=== PATIENT | male | born 1935 | race Two or more races ===

== ENCOUNTER 2023-01-12 15:39 | Emergency (ER) | payer OTHER ==
[~2023-01-12] VITALS: Ht 165.1 cm; Wt 56.7 kg
[2023-01-12] MEDS ORDERED: PAXLOVID 150-11 EACH (16:13)
[2023-01-12] MEDS ORDERED: VASOTEC2.5 MG (16:14)
[2023-01-12] MEDS ORDERED: LANOXIN125 MCG (16:14)
[2023-01-12] MEDS ORDERED: TAMS0.4C (16:14)
[2023-01-12] MEDS ORDERED: SYNTHROID75 MCG (16:14)
[2023-01-12] MEDS ORDERED: ECOTRIN81 MG (16:14)
[2023-01-12] MEDS ORDERED: TOPROL XL25 M1 (16:15)
[2023-01-12] MEDS ORDERED: LIPITOR40 M1 (16:15)
== END 2023-01-13 05:19 | disposition home or self-care (01) ==
LOC: ER 15:39
DX: K52.9 Noninfective gastroenteritis and colitis, unspecified (principal); D64.9 Anemia, unspecified; E86.0 Dehydration; C18.9 Malignant neoplasm of colon, unspecified; I10 Essential (primary) hypertension; E03.9 Hypothyroidism, unspecified

== ENCOUNTER 2023-03-02 15:21 | Emergency (ER) | payer OTHER ==
[~2023-03-02] VITALS: Ht 165.1 cm; Wt 54.4 kg
[~2023-03-02 15:21] MED LIST: ECOTRIN81 MG; LANOXIN125 MCG; LIPITOR40 M1; PAXLOVID 150-11 EACH; SYNTHROID75 MCG; TAMS0.4C; TOPROL XL25 M1; VASOTEC2.5 MG
== END 2023-03-02 22:13 | disposition home or self-care (01) ==
LOC: ER 15:21
DX: E86.0 Dehydration (principal); K52.9 Noninfective gastroenteritis and colitis, unspecified; C18.9 Malignant neoplasm of colon, unspecified